=== PATIENT | male | born 1955 | race Caucasian/White ===

== ENCOUNTER 2016-10-03 11:03 | Inpatient (IN) | payer BC ==
[~2016-10-03] VITALS: Ht 182.9 cm; Wt 97.3 kg
[2016-10-03] VITALS (366 sets, daily range): BP systolic 107–119; BP diastolic 68; PULSE 90–97; TEMP 97.2–98.2; O2SAT 94–100
[~2016-10-03 11:03] MED LIST: ACTOS 15MG TAB15 MG PO; ACTOS30 MG PO; ALDACTONE50 MG PO; AMARYL 2MG T2 MG/TAB PO; AMARYL4 MG PO; ASPIRIN 32325 MG/TAB PO; ASPIRIN 81M81 MG/TA2 PO; COREG 6.256.25 MG/TA PO; DIGITEK0.125 MG PO; GLUCOPHAGE850 MG/TAB PO; LASIX 40MG TABL40 MG PO; MICRO-K 1010 MEQ PO; NITROQUICK0.4 MG SL; PRINIVIL5 MG PO; TYLENOL ARTHRI650 M1 PO; VASOTEC20 MG PO; ZOCOR 40MG40 MG PO; ZYLOPRIM 300MG300 MG PO
[2016-10-03 12:15] LABS: BASO # 0.1 (0.0-0.2); BASO % 0.7 % (0.0-2.0); EOS # 0.1 (0.0-0.7); EOS % 1.5 % (0-4.0); GRAN # 5.2 (1.4-6.5); GRAN % 69.4 % (42.2-75.2); HEMATOCRIT 42.8 % (42.0-52.0); HEMOGLOBIN 13.7 g/dl (13.5-18.0); LYMPH # 1.6 (1.2-3.4); LYMPH % 21.2 % (20.0-51.0); MEAN CELL VOLUME 88 fl (80.0-100.0); MEAN CORPUSCULAR HEMOGLOBIN 28 pg (27.0-31.0); MEAN CORPUSCULAR HGB CONC 32 g/dl (33.0-37.0); MONO # 0.5 (0.1-0.6); MONO % 7.1 % (1.7-9.3); PLATELET COUNT 169 K/mm3 (130-400); RED BLOOD COUNT 4.84 M/mm3 (4.20-5.60); REDCELL DISTRIBUTION WIDTH-CV 13.5 % (11.5-14.5); WHITE BLOOD COUNT 7.5 K/mm3 (4.8-10.8)
[2016-10-03 12:26] LABS: ADJUSTED CALCIUM 9.9 mg/dL (8.4-10.2); ALANINE AMINOTRANSFERASE 53 U/L (21-72); ALBUMIN 4.2 gm/dL (3.5-5.0); ALKALINE PHOSPHATASE 56 U/L (50-136); ANION GAP 11 mmol/L (7-16); BLOOD UREA NITROGEN 24 mg/dL (9-20); CALCIUM 10.1 mg/dL (8.4-10.2); CARBON DIOXIDE 25 mmol/L (22-30); CHLORIDE 99 mmol/L (98-107); CREATININE, serum 0.93 mg/dL (0.66-1.25); GLUCOSE 181 mg/dL (74-106); POTASSIUM 5.6 mmol/L (3.4-5.0); SODIUM 136 mmol/L (137-145); TOTAL PROTEIN 7.4 gm/dL (6.4-8.2)
[2016-10-03 12:29] LABS: INR 1.1 (0.8-3.0); PROTHROMBIN TIME 11.8 SECONDS (9.7-12.8)
[2016-10-03 12:32] LABS: PARTIAL THROMBOPLASTIN TIME 28.8 SECONDS (26.0-37.0)
[2016-10-03 12:36] LABS: B-TYPE NATRIURETIC PEPTIDE 672 pg/mL (0-125)
[2016-10-03 12:54] LABS: TROPONIN-I < 0.012 ng/mL (0.000-0.034)
[2016-10-03 13:49] LABS: MAGNESIUM 2.1 mg/dL (1.6-2.3)
[2016-10-03] MEDS ORDERED: ISORDIL TITRADO30 MG PO (15:12)
[2016-10-03] MEDS ORDERED: XALATAN EYE DROPS OD (15:12)
[2016-10-03] MEDS ORDERED: FARXIGA10 PO (15:12)
[2016-10-03] MEDS ORDERED: ASPIRIN 32325 MG/TAB PO (15:12)
[2016-10-03] MEDS ORDERED: JANUVIA 100MG100 MG PO (15:13)
[2016-10-04] VITALS (452 sets, daily range): BP systolic 96–119; BP diastolic 60–80; PULSE 61–97; TEMP 96.1–98; O2SAT 80–100
[2016-10-04] MEDS ORDERED: MIRAPEX0.5 MG PO (05:51)
[2016-10-04] MEDS ORDERED: KLONOPIN 0.5MG0.5 MG PO (11:02)
[2016-10-05 03:51] VITALS: BP 111/71; PULSE 85; TEMP 97.7
[2016-10-05 07:35] VITALS: BP 113/61; PULSE 72; TEMP 97.7
[2016-10-05 09:40] LABS: CREATININE, serum 0.93 mg/dL (0.66-1.25); POTASSIUM 4.5 mmol/L (3.4-5.0)
[2016-10-05 12:22] VITALS: BP 106/58; PULSE 83; TEMP 97.9
[2016-10-05 15:57] VITALS: BP 113/72; PULSE 73; TEMP 97.5
[2016-10-05] MEDS ORDERED: RANEXA 500MG T500 MG PO (18:20)
== END 2016-10-05 18:55 | disposition home or self-care (01) | DRG 309 ==
LOC: COL.ER 11:03 → MEDICAL 14:17 → IMCU 15:44 → MEDICAL 10-04 10:44
PROVIDERS: Emergency Medicine; Internal Medicine
DX: I47.2 Ventricular tachycardia (principal); I50.22 Chronic systolic (congestive) heart failure; I49.01 Ventricular fibrillation; I25.5 Ischemic cardiomyopathy; I11.0 Hypertensive heart disease with heart failure; E87.5 Hyperkalemia; I25.10 Atherosclerotic heart disease of native coronary artery without angina pectoris; Z95.1 Presence of aortocoronary bypass graft; Z95.810 Presence of automatic (implantable) cardiac defibrillator; E11.42 Type 2 diabetes mellitus with diabetic polyneuropathy; E11.319 Type 2 diabetes mellitus with unspecified diabetic retinopathy without macular edema; Z87.891 Personal history of nicotine dependence
CPT/HCPCS: 99223-AI; 99232-AI; 99239; J1650

== ENCOUNTER → 2019-01-12 | Outpatient (REF) ==
[~2019-01-12] MED LIST changes: +FARXIGA10 PO; +ISORDIL TITRADO30 MG PO; +JANUVIA 100MG100 MG PO; +KLONOPIN 0.5MG0.5 MG PO; +MIRAPEX0.5 MG PO; +RANEXA 500MG T500 MG PO; +XALATAN EYE DROPS OD
== END ==
LOC: ZLAB.WCH 09:29
DX: Z01.89 Encounter for other specified special examinations (principal)

== ENCOUNTER → 2021-04-08 | Outpatient (REF) | LOC: COL.CARD 15:00 | DX: Z01.810 Encounter for preprocedural cardiovascular examination (principal) ==

== ENCOUNTER 2021-05-07 12:32 | Emergency (ER) | payer BC, MEDICARE ==
[~2021-05-07] VITALS: Ht 182.9 cm; Wt 93.2 kg
[2021-05-07 13:23] VITALS: TEMP 98.1
[2021-05-07 14:28] LABS: ALBUMIN 4.8 gm/dL (3.5-5.0); BILIRUBIN,TOTAL 1.1 mg/dL (0.0-1.0); CALCIUM 10.1 mg/dL (8.4-10.2); CREATININE, serum 1.36 (0.66-1.25); TOTAL PROTEIN 8.5 gm/dL (6.4-8.2)
[2021-05-07 14:54] LABS: BASO % 0.3 % (0.0-2.0); EOS % 0.5 % (0-4.0); GRAN # 2.6 (1.4-6.5); GRAN % 65.8 % (42.2-75.2); HEMOGLOBIN 15.5 g/dl (13.5-18.0); LYMPH # 0.8 (1.2-3.4); LYMPH % 20.8 % (20.0-51.0); MEAN CELL VOLUME 93 fl (80.0-100.0); MEAN CORPUSCULAR HEMOGLOBIN 30 pg (27.0-31.0); MEAN CORPUSCULAR HGB CONC 32 g/dl (33.0-37.0); MEAN PLATELET VOLUME 12.9 fl (7.4-10.4); MONO # 0.5 (0.1-0.6); MONO % 12.3 % (1.7-9.3); PLATELET COUNT 54 K/mm3 (130-400); RED BLOOD COUNT 5.18 M/mm3 (4.20-5.60); REDCELL DISTRIBUTION WIDTH-CV 13.8 % (11.5-14.5)
[2021-05-07 16:09] VITALS: BP 100/59; PULSE 103
== END 2021-05-07 16:16 | disposition home or self-care (01) ==
LOC: COL.ER 12:32
PROVIDERS: Family Medicine
DX: U07.1 COVID-19 (principal); Z94.1 Heart transplant status; Z87.891 Personal history of nicotine dependence; Z87.09 Personal history of other diseases of the respiratory system
CPT/HCPCS: Q0244

== ENCOUNTER → 2022-10-15 | Outpatient (CLI) | payer OTHER, MEDICARE ==
[~2022-10-15] MED LIST changes: +CELLCEPT 250MG250 MG PO; +GLUMETZA500 MG PO; +JARDIANCE10 PO; +LIPITOR20 MG PO; +MASON NATURAL2000 IU PO; +MIRAPEX1.5 MG PO; +NOVOLOG 100U100 U/M1 SQ; +PROGRAF 0.5MG0.5 MG PO; +PROGRAF 1MG1 MG PO; +SLOW-MAG71.5 MG PO; +SPIRIVA RE2.5 MCG/Ac IH; +TRULICITY1.5 MG/0.5 SQ; +TYLENOL 500MG500 MG PO; -TYLENOL ARTHRI650 M1 PO; +VITAMIN C500 MG PO; +XALATAN EYE DROPS OU
== END ==
LOC: MHCPAIN 15:23
DX: M48.062 Spinal stenosis, lumbar region with neurogenic claudication (principal); M54.16 Radiculopathy, lumbar region
CPT/HCPCS: G0463

== ENCOUNTER → 2022-11-13 | Outpatient (CLI) | payer OTHER, MEDICARE | LOC: MHCPAIN 13:42 | DX: M47.816 Spondylosis without myelopathy or radiculopathy, lumbar region (principal); M54.16 Radiculopathy, lumbar region | CPT/HCPCS: J1100; Q9967 ==